=== PATIENT | female | born 1945 | race Caucasian/White ===

== ENCOUNTER → 2017-11-02 | Outpatient (CLI) | payer OTHER, SELFPAY ==
[~2017-11-02] MED LIST: B12INJ IM; CENTRUM TABLET1 TAB; CLARITIN; COLACE100 MG PO; ESTRADIOL IM; FLEXERIL PO; GABAPENTIN 100100 MG PO; IMITREX100 MG PO; MACROBID 100 M100 M1 PO; MAGNES; MAGNESIUM INJECTION; MAGOX 400400 MG PO; MOBIC15 MG PO; MOM PO; MOTION RELIEF25 MG PO; MYLANTA PO; OXYCODONE HCL15 MG PO; PERCOCET PO; PRENATAL VITAM1 EAC5 PO; PROBIOTIC1 EAC1 PO; PROZAC 10 MG CA10 M1; ROXICODONE15 MG PO; SYNTHROID125 MCG PO; TIZANIDINE HCL 22 M1 PO; TRIGOSAMINE PO; VITAMIN D2000 UNIT PO; VOLTAREN GEL 1100 G2 TOP; XARELTO10 MG PO; ZANAFLEX4 MG PO; ZOLOFT100 MG PO; ZPAK PO; ZYRTEC10 M2 PO; [UNRECOGNIZED DRUG - OTHER]; b-12 PO
--- NOTE | 2017-11-07 07:21 | PAINCON ---
[address] [address] PAIN MANAGEMENT CONSULTATION Name: NATANAEL ELIZONDO [facility] [id number] Admission: 11/02/17 Attend Phys: Sander Hill Discharge: Date of : 43 Report #: [id number] THIS REPORT FOR: //name// CC: Arnoldo Pitt DATE OF SERVICE: 11/02/2017 HISTORY OF PRESENT ILLNESS: The patient is a pleasant 72-year-old female. She was seen on 08/31/2017. Having ongoing pain, back, left thigh and hip. We sought authorization for trigger point injections at last visit. She returns to the pain clinic today. We had a prolonged visit, greater than 25 minutes was spent with the patient today. She notes that the myofascial pain component continues. She sought child care provider, which has helped some. In fact, she has gotten a little better to the point that she is not using a cane anymore. She does, however, have some acute symptoms including what sounds like an upper respiratory infection. She complains of sore throat, runny nose, green discharge and some wheezing. PHYSICAL EXAMINATION: GENERAL: Shows a 72-year-old female, BMI is 31 kilograms per meter squared. VITAL SIGNS: Blood pressure is 109/67, pulse 73, respiratory rate is 16. She is afebrile presently at 97.8, but she does feel somewhat flush. HEENT: She has some erythematous area on her face with some diaphoresis. She is tender over the frontal sinuses, left greater than right. Some erythema in a modest range in the posterior pharynx. NECK: She does have positive cervical adenopathy. RESPIRATORY: Does have some rhonchi in the left lower lobe. Modestly productive cough. MUSCULOSKELETAL: Rises from the chair using armrest. Two discrete trigger points noted in the left gluteus sue and the left gluteus medius. Does have a component of lumbar radicular pain with a positive straight leg raise on the left, slight decreased left hip flexion strength. IMPRESSION: 1. Cervical radiculopathy by history. 2. Lumbar radiculopathy with acute exacerbation of left L4 radicular pain. 3. Axial back pain. 4. Myofascial pain with 2 discrete trigger points today. 5. Acute sinusitis. RECOMMENDATION: 1. We will continue oxycodone 15 mg one-half tablet q.4-6 hours. Last prescription for 100 tablets was generated on 08/31/2016. Lasted 30 days. We will renew tizanidine 2 mg t.i.d. for spasm. [place] [address] PAIN MANAGEMENT CONSULTATION Name: NATANAEL ELIZONDO [id number] Admission: 11/02/17 Attend Phys: Sander Hill Discharge: Date of : 43 Report #: [id number] writing for a Z-SANTOS (azithromycin 250 mg) for acute sinus infection. 2. Trigger point injection x 2 today and the next followup for LESI in 2 weeks once authorization has been obtained. 3. The patient has had good relief with epidural injections from another provider in 01/2014 and 08/2015 (she has ongoing radicular symptoms and has failed conservative therapy. MRI albeit dated from 2009 does note disk bulging, L3-L4 through L5-S1, with paramedian disk at L3-L4). PROCEDURE NOTE: Trigger point injection x 2. PROCEDURE: After written and informed consent was obtained, the patient was placed in the right lateral decubitus position. Trigger points identified in the left gluteus medius and left gluteus sue were identified. Using 25-gauge needle, 20 mg triamcinolone plus 5 mL of 0.5% preservative-free bupivacaine was injected into and around the 2 discrete trigger groups. Pierpont removed, area was cleansed, Band-Aids applied. The patient monitored for an appropriate period of time. Follow up in 2 weeks for consideration for epidural injection under fluoroscopy. Medications renewed as above. Acute sinus infection treated. <ELECTRONICALLY SIGNED> By: Serg Pitt DO 11/07/17 0721 [id number] Pitt DO /nt
== END | disposition home or self-care (01) ==
LOC: M.PC 02:51
DX: M79.1 Myalgia (principal); M54.16 Radiculopathy, lumbar region; M54.9 Dorsalgia, unspecified; J01.90 Acute sinusitis, unspecified; Z88.0 Allergy status to penicillin; Z91.041 Radiographic dye allergy status; Z88.8 Allergy status to other drugs, medicaments and biological substances; Z79.899 Other long term (current) drug therapy; Z79.891 Long term (current) use of opiate analgesic

== ENCOUNTER → 2017-12-28 | Outpatient (CLI) | payer OTHER, SELFPAY ==
--- NOTE | 2018-01-02 08:02 | PAINCON ---
[facility] [address] [place] [address] PAIN MANAGEMENT CONSULTATION Name: NATANAEL ELIZONDO Room: [facility].#: [id number] Admission: 12/28/17 Attend Phys: Sander Hill Discharge: Date of : 43 Report #: [id number] THIS REPORT FOR: //name// CC: Arnoldo Pitt The patient is a 72-year-old female, prior seen in the pain clinic on 11/02/2017. The patient was given a trigger point injection at that time for left back and hip, myofascial type pain. Returns to pain clinic today. We sought authorization for epidural injection under fluoroscopy for radicular component pain. Today, she spent a good deal of time talking about ongoing depression and anxiety issues. She feels financial stress. Her primary care physician has increased her Prozac to 60 mg a day and started Wellbutrin. She notes primary pain is in the low back, hip with aching sensation. Trigger points afforded no real long-term changes. She uses oxycodone for breakthrough pain, tizanidine at bedtime. PHYSICAL EXAMINATION: Shows 5 feet 5 inches, 190 pounds female, BMI is 31.7 kilograms per meter squared. Blood pressure is wnl, pulse 66, respirations 16. Again, subjective pain score is 8 on a VAS. Rises from chair using armrest. Modestly antalgic gait. Positive straight leg raise on the left with slight decreased left hip flexion strength. Diffuse tenderness across the low back. No discrete trigger points noted. We reviewed the fact that opiate medications are being used to provide analgesia adequate to support activities of daily living, not attempting to achieve a specific pain score on the 0-10 Visual Analog Scale. The current opiate medications are providing sufficient analgesia to allow the patient to participate in activities of daily living. The patient is not exhibiting any aberrant behavior suggestive of drug diversion. The patient is not having any adverse reactions to medications. The patient is not suffering from daytime somnolence or mental acuity changes. The patient is managing opiate-induced constipation with appropriate [id number] agents and dietary considerations. The patient was counseled on concern for caution with operating a motor vehicle while using opiate medications. A physical exam was performed and the patient's functional status was evaluated. All patients with back pain were advised against the bed rest greater than 4 days and were advised to return to normal activities. Pain score assessment was noted and the treatment plan was reviewed with the patient. All current medications, both prescribed and OTC were reviewed and reconciled on the electronic medical record. Tobacco screening was accomplished and smoking cessation was advised when indicated. BMI was noted and diet/exercise modification was recommended for all patients [place] [address] PAIN MANAGEMENT CONSULTATION Name: CARONATANAEL K [facility] Nair#: [id number] Admission: 12/28/17 Attend Phys: Sander Hill Discharge: Date of : 43 Report #: [id number] I reviewed with the patient today their responsibilities to safeguard prescription medications, reviewed their responsibility to utilize medications only as prescribed by the physician. They are to seek and receive pain medications only from 1 physician group ( [facility]). They are to use 1 pharmacy and keep the clinic informed if they change pharmacies. Their responsibilities include making followup visits in a timely fashion and to avoid abrupt discontinuation of medication usage. Their responsibilities further include bringing their medications (bottles from the pharmacy with residual pills) to the visit for possible confirmation of pill counts and the patient understands it is their responsibility to submit to random drug screens to ensure both that the medications prescribed are present, and that no other controlled substances are present. All prescriptions provided today were generated electronically. ASSESSMENT AND RECOMMENDATIONS: 1. Symptomatic cervical radiculopathy by history, myofascial pain requiring complex medication management, comorbidity of depression. Continue oxycodone 15 mg 1 tablet 3-4 times a day, limit 100 tablets for 30 days. I have taken the liberty of continuing current medications, unchanged. 2. Symptomatic lumbar radiculopathy with left L3 radicular pain pattern. Epidural injection under fluoroscopy today. Follow up in 4 weeks for reevaluation. PROCEDURE: Lumbar epidural injection under fluoroscopy. PROCEDURE NOTE: After both written and informed consent to include risk of spinal cord damage, increased pain, weakness and dural puncture, the patient was taken to the fluoroscopy suite, placed in the prone position. After sterile prep and drape, a skin wheal with lidocaine was raised. A 22-gauge epidural Tuohy needle was inserted in the midline at L3-L4 with good loss to resistance. Negative aspiration for cerebrospinal fluid or blood was noted. Then 1 mL of Omnipaque under biplanar fluoroscopy showed good spread within the epidural space. This was followed with 80 mg of triamcinolone plus 1 mL of 1.5% preservative-free Xylocaine, 0.5 mL Xylocaine was then injected to flush the needle; it was removed. The patient was monitored for an appropriate period of time and discharged in good and stable condition. <ELECTRONICALLY SIGNED> By: Serg Pitt DO 01/02/18 0802 1531 50[facility] Centerprince Pitt DO /nt
== END | disposition home or self-care (01) ==
LOC: M.PC 00:31
DX: M54.16 Radiculopathy, lumbar region (principal); M54.12 Radiculopathy, cervical region; M79.1 Myalgia; F32.89 Other specified depressive episodes; Z91.041 Radiographic dye allergy status; Z88.0 Allergy status to penicillin; Z79.891 Long term (current) use of opiate analgesic; Z88.8 Allergy status to other drugs, medicaments and biological substances; Z79.899 Other long term (current) drug therapy; Z98.890 Other specified postprocedural states

== ENCOUNTER → 2018-01-11 | Outpatient (CLI) | payer OTHER | LOC: M.RAD 12-19 10:21 | DX: Z12.31 Encounter for screening mammogram for malignant neoplasm of breast (principal); Z78.0 Asymptomatic menopausal state ==

== ENCOUNTER → 2018-02-06 | Outpatient (CLI) | payer OTHER | LOC: M.RAD 01-18 10:48 | DX: N63.20 Unspecified lump in the left breast, unspecified quadrant (principal); R92.8 Other abnormal and inconclusive findings on diagnostic imaging of breast ==

== ENCOUNTER → 2019-08-21 | Outpatient (CLI) | payer OTHER ==
[~2019-08-21] MED LIST changes: +REQUIP 0.25 M0.25 MG PO; +ROXICODONE5 M2 PO
--- NOTE | ~2019-08-21 | PAINCON ---
[address] [address] PAIN MANAGEMENT CONSULTATION Name: NATANAEL ELIZONDO Room: [facility] NichoBillie#: [id number] Admission: 08/21/19 Attend Phys: Sharath Jean Baptiste MD Discharge: Date of : 43 Report #: [id number] THIS REPORT FOR: //name// CC: Sharath Jacobo DO DATE OF SERVICE: 08/21/2019 CHIEF COMPLAINT: Back pain, neck pain, and fusion. HISTORY: The patient is a 74-year-old female who has been followed in the pain clinic by Dr. Serg Pitt. This is my first visit with the patient. She has a history of chronic pain. She has been receiving opioid medications in the past. She finds that her medications are helpful. She has pain involving her legs, wrists and generalized pain involving her joints. These have been ongoing for a number of years. She is experiencing chronic pain involving her legs. There are leg cramps that she is experiencing at night. She has some problem with her right foot. She dislocated a toe. She has been treating it with it being wrapped. Because of pain and discomfort in her back, she has undergone epidural steroid injections. They have been helpful. She has found that epidural steroid injections have been beneficial at times. She does suffer from headaches. These are migraine headaches and takes medication to help control them. Notes that her pain is worse with the colder weather. Walking, sitting, standing, going from bending and lifting can be more problematic. She has problems with Tylenol medications. They cause some GI problems. She has also had problems with nonsteroidal anti-inflammatory medications. She does have a history of GI ulcers. She has found that oxycodone has been gentler to her system. She would like to try this medication to help control her pain. Feels that she is getting older. Feels that the pain, when it is quite problematic, significantly impedes her from engaging in activities of daily living. She would like to try a regimen with opioid medications to help her increase her activities of daily living and having more comfortable existence. ALLERGIES: 1. PENICILLIN, FACIAL AND TONGUE SWELLING IN 2012. 2. IODINE CONTRAST, SYNCOPE, VOMITING, 2012. 3. METHYL PREDNISONE CAUSED A RASH, 2012. CURRENT MEDICATIONS: Vitamin D3 is 10,000 units, Voltaren gel 4 times daily to the upper extremities, Colace 100 mg, lactobacillus probiotic 2 capsules, levothyroxine 125 mcg, vitamins and iron, Imitrex 100 mg tablets, Zanaflex 4 mg, vitamin B12 is 1000 mcg intramuscular, 1500 mcg monthly, estrogen and magnesium. PAST MEDICAL HISTORY: Hypothyroidism, cervical fusion, jejunoileal bypass, [place] [address] PAIN MANAGEMENT CONSULTATION Name: ANDREW ELIZONDOIVY Sexton Room: [facility]#: [id number] Admission: 08/21/19 Attend Phys: Sharath Jean Baptiste MD Discharge: Date of : 43 Report #: [id number] colonoscopy 28 polyps, bilateral cataracts. Restless legs syndrome with muscle cramping. PAST SURGICAL HISTORY: Right knee arthroscopy, hysterectomy, cervical fusion, jejunoileal bypass, colonoscopy with 28 polyps, cataracts bilateral. REVIEW OF SYSTEMS: Generally good health, fevers, fatigue, headaches, wears glasses, blurred vision, hearing loss, chronic sinus, changes in bowel movements, frequent urination, frequent reoccurring headaches, lightheadedness, numbness and tingling sensation, memory loss, confusion, nervousness, depression, insomnia, thyroid disease. LABORATORY DATA: No new laboratory values are available at the time of our interview. PAIN CLINIC AND PQRS: 1. Osteoarthritis. The patient has arthritic changes in her knee. She is not being treated for rheumatoid arthritis. Has had fusion of her neck. 2. Height 5 feet 5 inches, weight 195 pounds, BMI is 32.6. 3. Vital Signs: Blood pressure 141/81, heart rate 64, respiratory rate 16, room air saturation 96%, and temperature 97.8. 4. Fall History: The patient has not fallen in the last 3 months. 5. Blood thinner. The patient is not on a blood-thinning medication. 6. Hypertension. The patient is not being treated for hypertension. 7. Opioids greater than 6 weeks. The patient received medication from one source, her primary physician. 8. Risk assessment tool, low for opioid use. 9. Functional assessment tool, low for opioid use. 10. Recreational drug use: The patient denies. 11. Tobacco: The patient denies. 12. Alcohol: The patient denies. PHYSICAL EXAMINATION: GENERAL: The patient is a well-developed, well-nourished white female. Appears her stated age. She is alert and oriented x 3. Her affect is appropriate. Speech is fluent. HEENT: Normocephalic, atraumatic. Extraocular eye muscles intact. Sclerae nonicteric. Mucous membranes are moist. NECK: Some limitation in range of motion. Well-healed scar in the anterior portion of her neck from previous surgery. EXTREMITIES: Upper extremity muscle strength judged to be 5-/5 for the major muscle groups in the upper extremity. The patient is without significant scoliosis, kyphosis. The patient has pain and discomfort in her legs. Has some generalized joint pain in her low back and wrist area. Has constant movement of her legs at night with restless legs as well as cramping. [facility] [address] [place] [address] PAIN MANAGEMENT CONSULTATION Name: NATANAEL ELIZONDO Room: [facility]#: [id number] Admission: 08/21/19 Attend Phys: Sharath Jean Baptiste MD Discharge: Date of : 43 Report #: [id number] IMPRESSION: 1. Chronic pain, status post fusion of the neck. 2. Degenerative joint disease, low back area, chronic pain. 3. History of bleeding ulcers. 4. Restless legs syndrome with right foot pain, right toe dislocated and taped. 5. Migraine headaches. RECOMMENDATIONS: We discussed treatment options with the patient. At this juncture, we will consider use of oxycodone. The patient states that the Tylenol-type medications upset her stomach. Finds that nonsteroidal anti-inflammatory medications are problematic in that the patient has had some bleeding ulcers. We will have the patient try oxycodone 5 mg 1 p.o. b.i.d. She has been using hydrocodone for a while. States that she uses it very sparingly. Feels that sometimes her pain become so problematic that she needs to have something to help with the pain. She will try Requip 0.25 mg at bedtime to help with the restless legs. We will increase this as she is able to tolerate it. Hopefully, she finds that this is beneficial. A script for her medications has been written. The patient will continue with tizanidine 4 mg one p.o. b.i.d., oxycodone 5 mg 1 p.o. b.i.d., Requip 0.25 mg at bedtime. She will call us if she has any concerns. We would like to thank you for letting us participate in her care. We hope she continues to improve. By: [id number]. Edu Jean Baptiste MD /amarjit
== END ==
LOC: M.PC 05:28
DX: G89.29 Other chronic pain (principal); M19.90 Unspecified osteoarthritis, unspecified site; G43.909 Migraine, unspecified, not intractable, without status migrainosus

== ENCOUNTER → 2019-10-04 | Outpatient (CLI) | payer MEDICARE, MEDICAID ==
[~2019-10-04] MED LIST changes: +PROZAC20 MG PO
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
== END ==
LOC: M.PC 08:27
DX: G89.29 Other chronic pain (principal); M47.816 Spondylosis without myelopathy or radiculopathy, lumbar region; G25.81 Restless legs syndrome; G43.909 Migraine, unspecified, not intractable, without status migrainosus; Z79.891 Long term (current) use of opiate analgesic; Z79.899 Other long term (current) drug therapy

== ENCOUNTER → 2020-04-03 | Outpatient (CLI) | payer MEDICARE ==
--- NOTE | ~2020-04-03 | PAINCON ---
[address] [address] PAIN MANAGEMENT CONSULTATION Name: ELIZONDONATANAEL K [facility] [id number] Admission: 04/03/20 Attend Phys: Sharath Jean Baptiste MD Discharge: Date of : 43 Report #: [id number] THIS REPORT FOR: //name// cc: Arnoldo Jacobo Steve T. DO ~ THIS REPORT FOR: //name// CC: Sharath Jacobo DATE OF SERVICE: 04/03/2020 CHIEF COMPLAINT: "I was putting out some mulch and my back and neck are hurting." HISTORY: The patient is a 74-year-old female who has been followed in the pain clinic because of chronic pain. She has pain and discomfort in the low back area. She states that she bought some mulch. She decided to put it out. After putting the mulch out she noticed that her pain increased. She has been using oxycodone 5 mg tablets sparingly. She had her last script about 6 months ago. After placing of mulch, she noticed increased pain and discomfort. She has returned to the pain clinic with the hopes of getting some oxycodone medication to help with her pain. As you may recall, she has had a fusion in her neck. This activity caused some increased pain and discomfort in the neck area as well. Overall, things are going reasonably well. She rates her pain today as 3/10. She feels that this is "pretty good." Feels her pain responds pretty well to her current medical regimen. She does have some constant jumping in her legs. She finds that the Requip continues to be helpful. She has taken at bedtime. She has tried magnesium. Overall, she feels that things are going reasonably well and she would like to continue with her medications. ALLERGIES: 1. PENICILLIN caused facial and tongue swelling in 2002. 2. IODINE AND CONTRAST, syncope and vomiting. 3. METHYLPREDNISOLONE caused a rash in 2012. CURRENT MEDICATIONS: Vitamin D, Voltaren gel 1% to the upper extremities, Colace 100 mg, Prozac 20 mg, probiotic, lactobacillus, levothyroxine 125 mcg, oxycodone 5 mg p.r.n. b.i.d., multivitamins, Requip 0.25 mg at bedtime, Imitrex for headaches, vitamin B12 1000 mcg, estradiol, magnesium. PAIN CLINIC ASSESSMENT AND PQRS: 1. The patient has some osteoarthritic changes in her knee. She also has some arthritic changes in her neck. She has had a fusion in the neck area. 2. Height 5 feet 5 inches, weight 194 pounds, BMI is 31.3. 3. Vital signs: Blood pressure 103/47, heart rate 77, respiratory rate 16, [facility] [address] [place] [address] PAIN MANAGEMENT CONSULTATION Name: NATANAEL ELIZONDO [facility] [id number] Admission: 04/03/20 Attend Phys: Sharath Jean Baptiste MD Discharge: Date of : 43 Report #: [id number] room air saturation 96%, temperature 96.8. 4. Pain intensity 12/03. 5. Fall history: The patient has not fallen in the last 3 months. 6. Blood thinner. The patient is not on a blood thinning medication. 7. Hypertension. The patient is not being treated for hypertension. 8. Risk assessment tool, low for opioid use. 9. Functional assessment tool reviewed. 10. Recreational drug use: The patient denied. 11. Tobacco: The patient denies. PHYSICAL EXAMINATION: GENERAL: The patient is a well-developed, well-nourished white female. Appears her stated age. She is alert and oriented x 3. Her affect is appropriate. Speech is fluent. HEENT: Normocephalic, atraumatic. Extraocular eye muscles intact. The patient is wearing a mask. NECK: Without adenopathy. Has some limited range of motion. She has a well-healed scar in the anterior portion of her neck from previous surgery. EXTREMITIES: Upper extremity muscle strength judged to be 5-/5 for the major muscle groups in the upper extremity. The patient has some soreness in the low back area. Rates her pain as 5/5 for the major muscle groups in the lower extremity. The patient without significant scoliosis, kyphosis or lordosis. The patient uses her hands to go from a sitting to a standing position before ambulating. CHEST: Generally clear. IMPRESSION: 1. Exacerbation of low back pain and neck pain after putting out mulch. 2. History of pneumonia. 3. Chronic pain, status post fusion of the neck. 4. Degenerative joint disease, low back, and chronic pain history. 5. History of bleeding ulcers. 6. Restless leg syndrome, migraine headaches. 7. Emotional trauma after son-in-law found at [place], having hung himself. RECOMMENDATIONS: We discussed treatment options with the patient. At this juncture, we will continue with her use of oxycodone. She uses medication very sparingly. She stays as active as possible. Overall, she feels that things are going reasonably well. She would like to continue with her medications. She keeps her medication in a guarded area. She is staying at home because of the COVID virus. She does see her grandchildren. She sees them in a somewhat controlled environment in hopes that things will continue to improve. She is hoping for a vaccine in the near future. She has family members who are in the school system. She is somewhat concerned about the return to school. Because of [place] [address] PAIN MANAGEMENT CONSULTATION Name: NATANAEL ELIZONDO Room: [facility]#: [id number] Admission: 04/03/20 Attend Phys: Sharath Jean Baptiste MD Discharge: Date of : 43 Report #: [id number] We would like to thank you for letting us participate in her care. A script for Requip has been provided. A script for oxycodone 5 mg 1 p.o. b.i.d. has been provided as well. By: 0925 Maria T Jean Baptiste MD /amarjit
== END ==
LOC: M.PC 04:27
PROVIDERS: ATTEND Anesthesiology Pain Medicine
DX: M47.816 Spondylosis without myelopathy or radiculopathy, lumbar region (principal); M54.5 Low back pain; G25.81 Restless legs syndrome; J18.9 Pneumonia, unspecified organism; G43.909 Migraine, unspecified, not intractable, without status migrainosus; M43.22 Fusion of spine, cervical region

== ENCOUNTER → 2020-07-01 | Outpatient (CLI) | payer MEDICARE, MEDICAID ==
[~2020-07-01] MED LIST changes: +SYNTHROID125 MC1 PO; -SYNTHROID125 MCG PO
--- NOTE | 2020-07-03 09:35 | PAINCON ---
[address] [address] PAIN MANAGEMENT CONSULTATION Name: ANDREW ELIZONDOIVY Sexton Room: [facility].#: [id number] Admission: 07/01/20 Attend Phys: Sharath Jean Baptiste MD Discharge: Date of : 43 Report #: [id number] THIS REPORT FOR: //name// cc: Arnoldo Jacobo Steve T. DO ~ THIS REPORT FOR: //name// CC: Sharath Jacobo DATE OF SERVICE: 07/01/2020 CHIEF COMPLAINT: "I was doing some vacuuming for a friend and now my neck is more painful." HISTORY: The patient is a 75-year-old female who has been followed in the pain clinic because of low back pain and neck pain. 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 His is in [place]. She was over cleaning. She was vacuuming, rather than use the large vacuum equipment cleaner she has used a small vacuum equipment cleaner and was down on her hands and knees vacuuming. Since that time, she has noticed an increase in pain and discomfort. As you may recall, she had a fusion in her neck. She notes that she had only one pain pill. She feels that the oxycodone medication is helpful. She has returned to the pain clinic for another renewal of her medication. She notes that activity, walking, sitting, standing, climbing stairs, bending and lifting have been problematic. She states that this is all her fault because she was too aggressive in the cleaning of her neighbor's house. ALLERGIES: 1. PENICILLIN CAUSED FACIAL AND TONGUE SWELLING IN 2002. 2. IODINE AND CONTRAST, SYNCOPE AND VOMITING. 3. METHYLPREDNISOLONE CAUSED A RASH IN 2012. CURRENT MEDICATIONS: Estradiol monthly, magnesium, Prozac 20 mg 3 tablets daily, Synthroid 125 mcg, sumatriptan injections p.r.n. for headaches, vitamins and iron, docusate 100 mg, Voltaren gel 1% to affected muscles 4 times daily, vitamin B12 intramuscular 1500 mcg monthly, vitamin D 2000 units, lactobacillus probiotic 2 capsules daily, oxycodone 5 mg 1 p.o. b.i.d., and Requip 0.25 mg 1 tablet at bedtime for restless legs. PAIN CLINIC ASSESSMENT AND PQRS: 1. The patient has some pain and changes in her knee. She has some arthritic changes in her neck. She has had a fusion in her neck. 2. Height 5 feet 5 inches, weight 189 pounds, BMI is 30. 3. Vital Signs: Blood pressure 113/78, heart rate 66, respiratory rate 16, room air saturation 96%, and temperature 97.4. [place] [address] PAIN MANAGEMENT CONSULTATION Name: ANDREW ELIZONDOIVY Sexton Room: [facility]#: [id number] Admission: 07/01/20 Attend Phys: Sharath Jean Baptiste MD Discharge: Date of : 43 Report #: [id number] 4. Pain intensity 5/10. 5. Fall history: The patient has not fallen in the last 3 months. 6. Blood thinner. The patient is not on a blood thinning medication. 7. Hypertension. The patient is not being treated for hypertension. 8. Fall risk. The patient has not fallen in the last 3 months. 9. Risk assessment tool, low for opioid use. 10. Functional assessment tool reviewed. 11. Recreational drug use. The patient denies. 12. Tobacco: The patient denies. 13. Alcohol: The patient denies. PHYSICAL EXAMINATION: GENERAL: The patient is a well-developed, well-nourished white female. Appears her stated age. She is alert and oriented x 3. Her affect is appropriate. Speech is fluent. HEENT: Normocephalic, atraumatic. Extraocular eye muscles intact. The patient is wearing a mask. NECK: Without adenopathy. The patient has some decreased range of motion in her neck. She has well-healed scar in the anterior portion of her neck from previous surgery. MUSCULOSKELETAL: Upper extremity muscle strength judged to be 5-/5 for the major muscle groups in the upper extremity. The patient has some soreness in her low back area. She rates her muscle strength is 5/5 for the major muscle groups in the lower extremity. The patient without significant scoliosis, kyphosis or lordosis. The patient uses hands to go from a sitting to a standing position before ambulating. CHEST: Clear. IMPRESSION: 1. Exacerbation of low back pain in the neck after cleaning the house and vacuuming with a handheld vacuum. 2. History of pneumonia. 3. Chronic pain, status post fusion of the neck. 4. Degenerative joint disease, low back, and chronic pain history. 5. History of bleeding ulcers. 6. Restless legs syndrome. 7. Migraine headaches. 8. Emotional trauma after son-in-law found at [place] a year or so ago, having hung himself. RECOMMENDATIONS: We discussed treatment options with the patient. We will continue with her current medical management. A script for her medications have been provided. The patient will continue with the oxycodone 5 mg 1 p.o. b.i.d. The patient will also continue with Requip 0.25 mg at bedtime for restless legs syndrome. She will call us if she has any concerns. Overall, she thinks, things are going reasonably well. She is staying shel[place] [address] PAIN MANAGEMENT CONSULTATION Name: NATANAEL ELIZONDO Room: [facility].#: [id number] Admission: 07/01/20 Attend Phys: Sharath Jean Baptiste MD Discharge: Date of : 43 Report #: [id number] possible because of the COVID-19 pandemic. We would like to thank you for letting us participate in her care. We hope she continues to improve. <ELECTRONICALLY SIGNED> By: Sharath Jean Baptiste MD 07/03/20 [id number]. Edu Jean Baptiste MD /nt
== END ==
LOC: M.PC 08:19
PROVIDERS: ATTEND Anesthesiology Pain Medicine
DX: M47.816 Spondylosis without myelopathy or radiculopathy, lumbar region (principal); G89.29 Other chronic pain; G25.81 Restless legs syndrome; G43.909 Migraine, unspecified, not intractable, without status migrainosus; R45.7 State of emotional shock and stress, unspecified; Z79.891 Long term (current) use of opiate analgesic; Z88.8 Allergy status to other drugs, medicaments and biological substances; Z79.899 Other long term (current) drug therapy; Z87.01 Personal history of pneumonia (recurrent)

== ENCOUNTER → 2020-09-09 | Outpatient (CLI) | payer MEDICARE, MEDICAID | LOC: M.PC 08:35 | PROVIDERS: ATTEND Anesthesiology Pain Medicine | DX: M51.36 Other intervertebral disc degeneration, lumbar region (principal); G25.81 Restless legs syndrome; G43.909 Migraine, unspecified, not intractable, without status migrainosus; Z87.01 Personal history of pneumonia (recurrent); Z87.11 Personal history of peptic ulcer disease ==

== ENCOUNTER → 2021-03-24 | Outpatient (CLI) | payer OTHER, MEDICAID | LOC: M.PC 08:49 | PROVIDERS: ATTEND Anesthesiology Pain Medicine | DX: M47.816 Spondylosis without myelopathy or radiculopathy, lumbar region (principal); M54.2 Cervicalgia; G89.29 Other chronic pain; L98.499 Non-pressure chronic ulcer of skin of other sites with unspecified severity; G43.909 Migraine, unspecified, not intractable, without status migrainosus; R45.7 State of emotional shock and stress, unspecified; Z88.0 Allergy status to penicillin; Z79.899 Other long term (current) drug therapy; Z79.891 Long term (current) use of opiate analgesic ==

== ENCOUNTER → 2021-06-16 | Outpatient (CLI) | payer OTHER, MEDICAID ==
[~2021-06-16] MED LIST changes: +REQUIP 0.25 M0.25 M1 PO
== END ==
LOC: M.PC 09:12
PROVIDERS: ATTEND Anesthesiology Pain Medicine
DX: G89.29 Other chronic pain (principal); M54.2 Cervicalgia; M19.90 Unspecified osteoarthritis, unspecified site; G25.81 Restless legs syndrome; G43.909 Migraine, unspecified, not intractable, without status migrainosus; R45.7 State of emotional shock and stress, unspecified; Z88.8 Allergy status to other drugs, medicaments and biological substances; Z79.899 Other long term (current) drug therapy

== ENCOUNTER → 2021-08-11 | Outpatient (CLI) | payer OTHER, MEDICAID | LOC: M.PC 09:23 | PROVIDERS: ATTEND Anesthesiology Pain Medicine | DX: M43.22 Fusion of spine, cervical region (principal); M51.26 Other intervertebral disc displacement, lumbar region; G25.81 Restless legs syndrome; K57.30 Diverticulosis of large intestine without perforation or abscess without bleeding; Z96.651 Presence of right artificial knee joint; Z88.0 Allergy status to penicillin; Z88.8 Allergy status to other drugs, medicaments and biological substances; Z79.899 Other long term (current) drug therapy ==